=== PATIENT | female | born 1985 | race Caucasian/White ===

== ENCOUNTER 2019-03-03 19:33 | Emergency (ER) | payer SELFPAY ==
[2019-03-03 19:34] VITALS: BP 108/63; PULSE 110; RESP 25; TEMP 36.8; O2SAT 96; BMI 22.1
--- NOTE | 2019-03-03 20:01 | CT_ITS ---
HISTORY:DYSPNEA,WEAKNESS,NAUSEA,VOMITING AND CHEST AND BACK PAIN,ELEVATED WBC,? METS SEEN TO LIVER ON CHEST CTHX: LT BREAST CANCER WITH ONLY NATURAL TREATMENT TECHNIQUE:CTA Chest W/ IV Contrast (and W/O Contrast Images if performed) A CT of the chest was performed following the administration of 75MLml 100mL Isovue-370 Thin axial reconstructed images were performed through the pulmonary vasculature as per the routine pulmonary embolus protocol.MIP and mutiplanar reconstructions A dose optimization technique was used during the scan # of images including paperwork:[id number] Comparison: none FINDINGS: No aneurysm or dissection. There is no calcific plaque in the aorta. Pulmary arteries: No evidence of pulmonary emboli The heart is mildly enlarged.. No pericardial effusion. No pleural effusion. No mediastinal adenopathy. There is right hilar adenopathy. The largest measuring approximately 1.2 cm. There is also associated soft tissue thickening that partially surrounds the artery to the right lower lobe. This also extends along the segmental pulmonary arteries bilaterally in the lower lobes. The lungs there are multiple pulmonary nodules that are too numerous to count bilaterally. These are compatible with metastatic disease. There is also nodularity seen along the minor fissure on the right and to lesser extent the major fissure. The largest nodule in the right upper lobe is seen on image 65 series 601 measuring approximately 5.6 mm and in the left upper lobe on the same image measuring approximately 7.31 m. In the left lower lobe the largest nodule is seen at the costophrenic angle measuring approximately 7 mm. In the right middle lobe there is a conglomerate nodule with the widest diameter measuring approximately 9 mm. Right lower lobe measuring approximately 1.2 cm. Pneumpothorax: none The trachea and central airways appear the airways are patent. Limited views of the upper abdomen probable hepatomegaly with multiple low-density lesions seen within the liver the largest on image 46 series 2 in the right lobe measuring approximately 6 cm x 4 cm suspect for metastasis Destructive lesion involving the sternum and the manubrium greater on the left. Also destructive lesion involving the right lamina and partially the left lamina and spinous process of approximately the C6 vertebral body as well as in the right vertebral body. Also within the T2 vertebral body and left second rib, the T3-T4 T5-T6-T7 T8-T9-T10 and T11-T12 vertebral bodies. There are associated soft tissue masses that are seen with cortical breakthrough seen at the level of T11 T10 T9 T6 T5. Multiple rib lesions are also noted. Incidental note is made of a large left-sided breast lesion that measures approximately 6.1 x 5 cm with skin thickening. There is also a right breast area of nodularity measuring approximately 1.[address]/CTA Chest W/WO Contrast IMPRESSION: No aneurysm dissection or pulmonary in losing Multiple metastatic lesions within the lungs bilaterally as discussed. Right hilar adenopathy. Suspect liver metastasis Diffuse osseous metastasis. Large left breast mass and trouble both right breast mass. This may be better evaluated with mammography Individualized dose optimization techniques were used for this CT. at 0134 Reported and signed by: Alba Reyes DO Electronically Signed: Alba Reyes DO at 22:13 EDT Tel , Service support ,
--- NOTE | 2019-03-03 20:01 | EKG12_ITS ---
Test Reason : CHEST PAIN Blood Pressure : / mmHG Vent. Rate : 110 BPM Atrial Rate : 110 BPM P-R Int : 158 ms QRS Dur : 084 ms QT Int : 334 ms P-R-T Axes : 056 034 025 degrees QTc Int : 452 ms Sinus tachycardia Otherwise normal ECG Confirmed by RICHARD LOCKE ([id number]), editor & co founder MICHAEL GHOTRA ([id number] on 03/13/2019 3:47:35 PM Referred By: ADRIANA Confirmed By:RICHARD LOCKE
[2019-03-03] MEDS: 0.9% Normal Saline 1,000 ML 1000 ML IV (20:40)
[2019-03-03 20:42] VITALS: O2SAT 100
[2019-03-03] MEDS: Ondansetron 4 MG/2 ML Vial IV (20:53)
[2019-03-03 20:55] LABS: Absolute Lymphocyte Count 1.36 X10^3/uL (0.83-4.51); Absolute Neutrophil Count 10.7 X10^3/uL (2.0-7.7); Basophil# 0.07 X10^3/uL; Basophil% 0.5 % (0-1); Eosinophil# 0.03 X10^3/uL; Eosinophils% 0.2 % (0-5); Hematocrit 31.2 % (37-47); Hemoglobin 10.1 g/dL (12.0-15.0); Lymphocyte # 1.36 X10^3/ul (4.0); Lymphocyte % 10.4 % (19-41); Mean Corp Hgb Conc 32.4 g/dL (32-36); Mean Corpuscular Hgb 29.2 pg (27.0-32.0); Mean Corpuscular Volume 90.2 fL (81-99); Mean Platelet Vol. 8.9 fl (6.2-12.0); Monocyte# 0.88 X10^3/uL; Monocyte% 6.7 % (0-10); NRBC Flagged by Analyzer 0 % (0-5); Neutrophil # 10.68 X10^3/uL (2.7-7.7); Neutrophil % 81.4 % (47-70); Platelet Count 524 K/mm3 (150-450); RBC Distribution Width CV 12.4 % (11.6-14.6); RBC Distribution Width SD 40.1 fl (35.1-43.9); Red Blood Count 3.46 M/mm3 (4.2-5.4); White Blood Count 13.1 K/mm3 (4.4-11.0)
[2019-03-03 21:06] LABS: International Normalized Ratio 1.2; Prothrombin Time (Protime)PT. 15.3 SECONDS (11.7-14.9)
[2019-03-03 21:07] LABS: Partial Thromboplast Time 28.5 Seconds (24.1-36.2)
[2019-03-03 21:12] LABS: Anion Gap 10 (5-15); BUN 13 mg/dL (7-18); BUN/Creat Ratio 17.4 RATIO (10-20); Calcium,Total 9.6 mg/dL (8.5-10.1); Chloride 99 mmol/L (98-107); Creatinine, Serum 0.75 mg/dL (0.55-1.02); EST Glomerular Filtration Rate 94 mL/min (>60); Est Glom Filt Rate - Afr Amer 113 mL/min (>60); Estimated Creatinine Clearance 87.43 ml/min; Glucose 133 mg/dL (74-106); Magnesium 1.8 mg/dL (1.6-2.6); Sodium Level 136 mmol/L (136-145)
--- NOTE | 2019-03-03 21:20 | CT_ITS ---
HISTORY:DYSPNEA,WEAKNESS,NAUSEA,VOMITING AND CHEST AND BACK PAIN,ELEVATED WBC,? METS SEEN TO LIVER ON CHEST CTHX: LT BREAST CANCER WITH ONLY NATURAL TREATMENT DYSPNEA,WEAKNESS,NAUSEA,VOMITING AND CHEST AND BACK PAIN,ELEVATED WBC,? METS SEEN TO LIVER ON CHEST CTHX: LT BREAST CANCER WITH ONLY NATURAL TREATMENT TECHNIQUE: Helically acquired images were obtained of the abdomen and pelvis following IV contrast. A radiation dose optimization technique was used for this scan. IV Contrast dosage and agent:50ML 100mL Isovue-370 Oral contrast: None. COMPARISON: None FINDINGS: # of images incl. paperwork: [id number] LOWER CHEST: Please refer to CT of the chest for more detailed description of the chest. In summary there are multiple lytic lesions seen within the vertebral bodies as well as the ribs. There is a necrotic left breast mass and probable mass within the left axillary tail. This soft tissue mass with destruction of the right anterior third rib. LIVER: Diffuse enhancing lesion seen within the liver most marked within the medial aspect of the right lobe as well as the left lobe suspect for metastasis. There is hepatomegaly. GALLBLADDER AND BILIARY TREE: No calcified gallstones. There is no gallbladder distension or wall edema. No intra- or extrahepatic biliary ductal dilation. KIDNEYS AND URETERS: Normal renal size and position. There is no hydronephrosis. ADRENAL GLANDS: Non-enlarged. SPLEEN: Normal size without focal cystic or solid mass. PANCREAS: No focal cystic or solid mass. BOWEL: The stomach is unremarkable Fluid-filled transverse duodenum mildly dilated. Nondistended fluid-filled loops of small bowel are also noted There is no mechanical obstruction LYMPH NODES: No enlarged mesenteric or retroperitoneal lymph nodes. PERITONEUM: There are congestive changes in the mesentery. Free fluid is seen within the pelvis. VESSELS: Aorta is non-dilated. URINARY BLADDER: Incompletely distended, otherwise grossly unremarkable. REPRODUCTIVE ORGANS: Fluid is seen within the endometrial canal with widening of the lower uterine segment. Low density is seen adjacent to the canal on sagittal image 72 series 137. These most likely represent nabothian cysts ABDOMINAL WALL: No discrete abdominal or pelvic wall hernia observed. BONES: Diffuse osseous metastasis. There is involvement of the thoracic and lumbar spine as well as diffuse involvement of the pelvis and the femurs. Also within the ribs. There is cortical breakthrough seen within the thoracic spine involving the T10 vertebral body on the left with associated soft tissue mass. On the right at T11. This may extend to the neural foramen. Involvement of the posterior elements. Suspected cortical breakthrough posteriorly at the level of L2. Destruction of the right transverse process of L3 with. Question extension into the right neural foramen at T5. Involvement of the left sacroiliac joint. There is destruction and invasion into the neuroforamen at S2. There is invasion of the initial tuberosity with associated soft tissue mass. This is in the region of the sciatic nerve on the left. Many more osseous lesions are noted CT/Abdomen/Pelvis W IV Cont ONLY IMPRESSION: Diffuse metastasis involving the axial and appendicular skeleton, the liver, the lungs. Congestive changes of the mesentery Necrotic left breast mass and probable small right breast mass There is a small amount of free fluid in the pelvis Nabothian cysts in the cervix Individualized dose optimization techniques were used for this CT. at 2226 Reported and signed by: Alba Reyes DO Electronically Signed: Alba Reyes DO at 22:25 EDT Tel , Service support ,
--- NOTE | 2019-03-03 21:59 | ED.RN ---
DR. VALDEZ WENT IN AND GAVE PROGNOSIS OF BREAST CA WITH METS THROUGHOUT THE BODY. HE RECOMMENDED HOSPICE AND OR ONCOLOGIST AND THEY REFUSED. I ASKED IF THEY WOULD LIKE TO HAVE BROCHURES OR INFORMATION ABOUT HOSPICE AND OR PALLIATIVE CARE AND AGREED. BROCHURES WERE RECEIVED FROM [facility] TO GIVE TO THEM.
--- NOTE | 2019-03-03 22:03 | ED.RN ---
BROCHURES GIVEN TO THE . HE DOES NOT WISH TO TALK TO [facility] AND DENIES ANY NEEDS AT THIS TIME. THE PATIENT DENIES NEEDS AND DOES NOT WANT CLEANED UP.
[2019-03-03 22:04] VITALS: BP 107/69; PULSE 96; RESP 25; O2SAT 94
--- NOTE | 2019-03-03 22:40 | ED.RN ---
I WENT IN TO CHECK ON THE PATIENT.PATIENT AND SPOUSE DENIES NEEDS AT THIS TIME. PATIENT IS RESTING WITH HER EYES CLOSED. IV FLUIDS STILL RUNNING.
--- NOTE | 2019-03-03 23:12 | ED.DCSUM_ITS ---
- ER Visit Summary Date of Service: 03/03/19 Chief Complaint: Shortness of breath History of Present Illness: The patient is a 33 F shortness of breath. Symptoms have been worsening for weeks. She was diagnosed with ductal breast cancer 2 years ago. She elected to have natural treatment in [place] with tonics. She said that her cancer had spread to lymph nodes, but was not aware of any further spread. She denies any other chronic medical issues. She tells me that she does not want to take chemotherapy. She wants to avoid medications like antibiotics if possible. She does not have a CODE STATUS or other end-of-life planning. Physical Examination: Afebrile. Tachycardic. Respiratory rate 25. 96% on room air. Patient appears uncomfortable, tearful. Heart tachycardic regular. Lungs clear. Patient has a left breast mass. Test Results: EKG showed sinus rhythm at a rate of 110. White count 13.1, hemoglobin 10.1, platelets 524. Glucose 133. INR 1.2 and PTT 28.5. Troponin was normal. CT showed bilateral breast masses, larger on the left with necrosis. She also has diffuse metastatic disease throughout her lungs and abdomen and skeleton. Emergency Department Course and Treatment: Had a lengthy discussion with the patient and her significant other. She told me she did not want standard cancer therapy like chemotherapy or radiation. She was reluctant to have an IV placed or receive any contrast in the IV. I advised her that the only way to evaluate her cancer or for other underlying complications would be through blood work and imaging. She agreed to basic blood work and CT. Imaging showed breast masses with extensive metastatic disease. I relayed the findings to the patient and her significant other. I advised that at this point, it does not appear that this is a survivable illness. I advised that because she does not want chemotherapy or other allopathic treatments, that I could refer her to hospice and/or palliative care. She was not interested in that. I advised that I can talk with oncology for any further ideas, and they were agreeable. I spoke with Dr. Foss who is covering for the local group. He advised that the only treatment for her cancer at this point would be chemotherapy, and that it would only serve to prolong her life. I relayed this information to the patient and her significant other. They were not interested in admission or further inpatient care. They would like to go home and follow-up with oncology as an outpatient. I advised that oncology will want to do additional testing. Dr. Foss said they would likely do an MRI of her brain and further blood work. He advised that she can follow-up with the local oncologists Marycarmen/Kirill in the office. After further discussion with the patient and her significant other, they would like to follow-up as an outpatient. Will prescribe pain medicine and nausea medicine. Return at anytime for any new or worsening issues or if they change their mind. Prior to discharge, nursing spoke with the patient again, and they were agreeable to a hospice evaluation. The nurse was paged and will evaluate tonight. Treatment Plan: As above Disposition: Pending hospice evaluation Impression: 1. Metastatic breast cancer This note was generated with [employer] dictation software. It may contain incorrect words, spelling, and punctuation that were not noted in review of the chart prior to signing ED Disposition - Plan for ED Patient: Instructions: What Is Breast Cancer? Prescriptions: Oxycodone [Oxyir] 5 mg PO Q6H PRN PRN 3 Days #12 tab PRN Reason: Pain Score 1-10/10 Prescription Printed Ondansetron [Zofran Odt] 4 mg PO Q8H PRN PRN #20 tab PRN Reason: Nausea Prescription Printed Referrals: Severo Conroy MD [STAFF PHYSICIAN] - Poli Roy DO [STAFF PHYSICIAN] -
--- NOTE | 2019-03-03 23:20 | ED.DEP ---
ED Disposition - Plan for ED Patient: Instructions: What Is Breast Cancer? Prescriptions: Oxycodone [Oxyir] 5 mg PO Q6H PRN PRN 3 Days #12 tab PRN Reason: Pain Score 1-03/09 Prescription Printed Ondansetron [Zofran Odt] 4 mg PO Q8H PRN PRN #20 tab PRN Reason: Nausea Prescription Printed Referrals: Severo Conroy MD [STAFF PHYSICIAN] - Poli Roy DO [STAFF PHYSICIAN] -
[2019-03-04] MEDS: oxyCODONE 5 MG Tablet 10 MG PO (00:45)
[2019-03-04 00:55] VITALS: BP 97/65; PULSE 98; RESP 20; O2SAT 95
--- NOTE | 2019-03-04 01:10 | ED.RN ---
HOSPICE NURSE CAME OUT TO TRY AND CONVINCE THEM TO HAVE PATIENT TO GO TO INPATIENT UNIT TO GET PAIN UNDER CONTROL AND THEN HOME AND THEY REFUSED. HOSPICE NURSE GAVE THEM ALL THE INFORMATION TO BE ADMITTED LATER. OXYIR 10 MG WAS GIVEN TO PATIENT. PATIENT WAS ABLE TO GET UP TO THE [facility]. PRESCRIPTIONS WERE FILLED FOR PATIENT AT THE BEDSIDE, AND PATIENT WAS TAKEN OUT TO THE CAR IN A WHEELCHAIR TO GO HOME WITH HER . .
== END 2019-03-04 01:12 | disposition home or self-care (01) ==
LOC: ED 20:22
PROVIDERS: Emergency Provider Emergency Medicine; Family Provider Student in an Organized Health Care Education/Training Program; PCP Student in an Organized Health Care Education/Training Program
DX: C50.912 Malignant neoplasm of unspecified site of left female breast (principal); C77.9 Secondary and unspecified malignant neoplasm of lymph node, unspecified; C78.7 Secondary malignant neoplasm of liver and intrahepatic bile duct; C78.00 Secondary malignant neoplasm of unspecified lung; C79.51 Secondary malignant neoplasm of bone
CPT/HCPCS: 71275; 74177; 80048; 83735; 84484; 85025; 85610; 85730; 93005; 96361; 96374; 99285; Q9967; A4216; J2405